=== PATIENT | female | born 1995 | race Caucasian/White ===

== ENCOUNTER 2016-07-15 19:43 | Emergency (ER) | payer BC ==
[~2016-07-15] VITALS: Ht 157.5 cm; Wt 48.0 kg
[2016-07-15] MEDS ORDERED: KETOROLAC 60MG/2ML VIAL IM ONE (20:15)
[2016-07-15] MEDS ORDERED: CYCLOBENZAPRINE 10MG TABLET PO ONE (20:15)
[2016-07-15] MEDS ORDERED: LORAZEPAM 0.5MG TABLET PO ONE (23:15)
[2016-07-16] MEDS ORDERED: ONDANSETRON 4MG ODT PO ONE (01:30)
[2016-07-16] MEDS ORDERED: MORPHINE SULFATE 4 MG/ML CPJ (NOT FOR IM USE) IV ONE (01:30)
[2016-07-16] MEDS ORDERED: MORPHINE SULFATE 10 MG/ML CPJ IM ONE (01:30)
[2016-07-16] MEDS ORDERED: DEXAMETHASONE 10MG/ML 1ML VIAL IV ONE (02:00)
[2016-07-16 02:01] LABS: BASOPHILS % 0.3 % (0.0-2.0); EOSINOPHILS % 0.1 % (0.0-5.0); HEMATOCRIT. 38.5 % (36.0-48.0); HEMOGLOBIN. 13.1 g/dL (12.0-16.0); LYMPHOCYTES % 21.9 % (20.0-50.0); MEAN CORPUSCULAR HEMOGLOBIN 30.6 pg (28.0-32.0); MEAN CORPUSCULAR VOLUME 90.1 fL (81.0-99.0); MONOCYTES % 6.8 % (2.0-8.0); NEUTROPHILS % 70.9 % (40.0-76.0); PLATELET 218 x1000/uL (130-400); RED BLOOD CELL COUNT 4.27 mill/uL (4.2-5.4); RED CELL DISTRIBUTION WIDTH 12.2 % (11.6-14.6)
[2016-07-16 02:02] LABS: CHLORIDE 106 mEq/L (98-107); INDEX HEMOLYSI 1 (1-3); INDEX ICTERIC 1 (1-4); INDEX LIPEMIC 1 (1-3)
[2016-07-16 02:04] LABS: INR 1.1; PROTHROMBIN TIME 11.4 sec
[2016-07-16 02:11] LABS: ALANINE AMINOTRANSFERASE 22 IU/L (13-61); ALBUMIN 4.2 g/dL (3.4-5.0); ANION GAP 16; CALCIUM 8.9 mg/dL (8.5-10.1); CARBON DIOXIDE 23 mEq/L (21-32); UREA NITROGEN BLOOD 13 mg/dL (7-21); eGFR > 60 mL/min (>60)
[2016-07-16 06:25] VITALS: BP 116/66
== END 2016-07-16 06:36 | disposition short-term general hospital (02) ==
LOC: ER 19:44
DX: S32.051A Stable burst fracture of fifth lumbar vertebra, initial encounter for closed fracture (principal); W17.89XA Other fall from one level to another, initial encounter; Y93.39 Activity, other involving climbing, rappelling and jumping off; Y92.89 Other specified places as the place of occurrence of the external cause; Y99.8 Other external cause status; F41.9 Anxiety disorder, unspecified; J45.909 Unspecified asthma, uncomplicated
CPT/HCPCS: 36415; 72040; 72070; 72110; 72131; 72148; 80053; 81025; 85025; 85610; 96372; 96374; 96375; 99285; J1100; J1885; J2270; Q0162; Z7610